=== PATIENT | male | born 1950 | race Caucasian/White ===

== ENCOUNTER 2018-08-15 11:33 | Inpatient (IN) ==
--- NOTE | 2018-08-15 12:20 | Diag Imaging Result Doc PS360 ---
EXAM: CHEST-PORTABLE - 08/15/2018 HISTORY: weak TECHNIQUE: Portable chest COMPARISON: 08/14/2018 FINDINGS: Heart size is normal. There is mild subsegmental atelectasis at the left base. The lungs otherwise appear clear. There is no pleural effusion or pneumothorax identified. IMPRESSION: Mild subsegmental atelectasis at left base. No other evidence of acute disease. Electronically signed by Moses Mcdonald 08/15/2018 12:18 PM
[2018-08-15 12:34] LABS: BASO# 0.02 X1000 (0.0-0.2); BASO% 0.3 % (0.0-0.8); EOS# 0.09 X1000 (0.0-0.7); EOS% 1.4 % (0.0-10.0); HEMATOCRIT 28.4 % (42.0-52.0); HEMOGLOBIN 10.2 g/dL (14.0-18.0); IMM GRAN# 0.02 X1000 (0.0-0.04); IMM GRAN% 0.3 % (0.0-0.5); LYMPH# 1.58 X1000 (1.2-3.4); LYMPH% 24.2 % (20.5-51.1); MCH 36.7 PG (27-31); MCHC 35.9 g/dL (33-37); MCV 102.2 FL (81-99); MONO# 0.51 X1000 (0.11-0.59); MONO% 7.8 % (1.7-9.3); MPV 9.9 FL (7.4-10.4); PLT 243 X1000 (130-400); RBC 2.78 XMIL (4.7-6.1); RDW 11.8 % (11.5-14.5); WBC 6.52 X1000 (4.8-10.8)
[2018-08-15 12:38] LABS: INR 1.37; PROTIME 17.9 Seconds (11.0-16.0)
[2018-08-15 12:39] LABS: PTT 33.9 Seconds (22.3-41.8)
[2018-08-15 12:43] LABS: MAGNESIUM 1.2 mg/dL (1.5-2.7)
[2018-08-15] MEDS ORDERED: NS 1,000 ML IV ONE (13:47)
[2018-08-15 14:41] LABS: URINE SOURCE CLEAN CATCH
[2018-08-15 14:55] LABS: BILIRUBIN URINE NEGATIVE (NEGATIVE); BLOOD URINE MODERATE (NEGATIVE); COLOR YELLOW; GLUCOSE URINE NEGATIVE (NEGATIVE); KETONE URINE NEGATIVE (NEGATIVE); LEUKOCYTES URINE TRACE (NEGATIVE); NITRITE URINE NEGATIVE (NEGATIVE); PH URINE 6.5; PROTEIN URINE TRACE mg/dL (NEGATIVE); TURBIDITY URINE CLEAR (CLEAR); UROBILINOGEN URINE NORMAL (NORMAL)
[2018-08-15 14:56] LABS: UR EPITHELIAL CELLS <10 /HPF (<10); URINE BACTERIA NEGATIVE /HPF; URINE RBC 20-40 /HPF (<10); URINE WBC <10 /HPF (<10)
[2018-08-15 14:59] LABS: AGAP 15; BUN 5 mg/dL (8-22); CALCIUM 7.9 mg/dL (8.8-10.2); CHLORIDE 91 mmol/L (98-107); COSMO 253; CREATININE 0.8 mg/dL (0.7-1.2); ESTIMATED GFR > 60; GLUCOSE 112 mg/dL (70-104); POTASSIUM 2.8 mmol/L (3.5-5.1); SODIUM 127 mmol/L (136-145); TCO2 21 mmol/L (25-35)
[2018-08-15] MEDS ORDERED: POTASSIUM CHLORIDE 20 MEQ/SWI 20 MEQ/100 ML IVPB IV STA (15:02)
[2018-08-15] MEDS: POTASSIUM CHLORIDE 20 MEQ/SWI 20 MEQ/100 ML IVPB IV SCH ×2 (15:54→18:03)
[2018-08-15] MEDS ORDERED: NS 500 ML ONE (15:54)
[2018-08-15] MEDS ORDERED: POTASSIUM CHLORIDE 20 MEQ/SWI 20 MEQ/100 ML IVPB IV SCH (16:00)
[2018-08-15] MEDS ORDERED: NS 500 ML IV ONE (16:06)
--- NOTE | 2018-08-15 16:24 | EKG Report ---
Test Performed on : 08/15/2018 11:54:05 AM Test Reason : ED. NO EKG ORDER FOR MUSE Blood Pressure : / mmHG Vent. Rate : 087 BPM Atrial Rate : 087 BPM P-R Int : 166 ms QRS Dur : 076 ms QT Int : 452 ms P-R-T Axes : 014 022 043 degrees QTc Int : 543 ms Sinus rhythm. with premature atrial complexes. Low voltage QRS Nonspecific ST abnormality Prolonged QT Abnormal ECG When compared with ECG of 14-AUG-2018 09:32, (Unconfirmed) premature atrial complexes. are now present Unconfirmed Result
[2018-08-15] MEDS ORDERED: MAGNESIUM SULFATE 2 GM/S.W.I. 2 GM/50 ML IVPB IV ONE (16:40)
[2018-08-15] MEDS ORDERED: ZOFRAN IV PRN (16:43)
--- NOTE | 2018-08-15 17:54 | PROVIDER DOCUMENTATION ---
This chart was entered by Celina Bui Scribe, acting as scribe for Robert Og MD. HPI-General Adult - General Chief Complaint: Abnormal Lab[s] Stated Complaint: ABNORMAL LABS Time Seen by Provider: 08/15/18 11:44 Source: patient, old records Allergies/Adverse Reactions: Patient Allergies Allergy/AdvReac Type Severity Reaction Status Date / Time No Known Allergies Allergy Verified 08/14/18 09:29 Home Medications: Home Medication List Medication Instructions Recorded Confirmed Last Taken Type Diltiazem HCl [Diltiazem 24Hr ER] 180 mg PO DAILY 12/20/13 08/15/18 08/14/18 21:00 History Fenofibrate [Tricor] 160 mg PO QHS 12/20/13 08/15/18 08/14/18 21:00 History Losartan [Cozaar] 50 mg PO DAILY 12/20/13 08/15/18 08/14/18 21:00 History Ferrous Sulfate 325 mg PO DAILY 08/19/15 08/15/18 08/14/18 21:00 History Pantoprazole [Protonix] 40 mg PO DAILY@0700 08/19/15 08/15/18 08/14/18 21:00 History Aspirin [Aspirin EC] 1 tab PO DAILY 03/06/18 08/15/18 08/14/18 21:00 History Acetaminophen [Tylenol] 650 mg PO Q6H PRN PRN tablet 03/09/18 08/15/18 Unknown Rx Folic Acid 1 mg PO BID tablet 03/09/18 08/15/18 08/14/18 21:00 Rx Duloxetine HCl 30 mg PO HS 08/15/18 08/15/18 08/14/18 21:00 History Rivaroxaban [Xarelto] 20 mg PO HS 08/15/18 08/15/18 08/14/18 21:00 History - History of Present Illness -Gen Adult Nature of Presenting Problems: 67 y/o male presents to ED with decreased appetite and generalized weakness. Pt reports he is not able to walk anymore due to the increasing weakness. Pt states he has been declining since a back surgery last year. Pt denies pain. Pt was s een in ED yesterday and refused admission. Pt is alert and oriented. Location of Pain/Injury: reports: generalized Pain Radiation: reports: no radiation Quality of Pain: reports: none Severity: reports: moderate Onset/Duration: reports: other (last year) Timing: reports: still present, getting worse Context/Activities at Onset: reports: none Modifying Factors: improves with: nothing Associated Symptoms: reports: loss of appetite, weakness, trouble walking Similar Symptoms Previously?: No Recently seen or treated by another doctor?: Yes (ED yesterday for same) Review of Systems - Adult - REVIEW OF SYSTEMS - ADULT Constitutional: denies: chills, fever Eyes: reports: no symptoms reported Ears, Nose, Mouth & Throat: reports: no symptoms reported Cardiovascular: denies: chest pain, palpitations Respiratory: denies: cough, shortness of breath Gastrointestinal: reports: poor appetite. denies: abdominal pain, diarrhea, nausea, vomiting Genitourinary: reports: no symptoms reported Musculoskeletal: denies: back pain, joint pain Integumentary: reports: no symptoms reported Neurological: reports: other (weakness; trouble walking). denies: dizziness/vertigo, seizure Psychiatric: reports: no symptoms reported Endocrine: reports: no symptoms reported Hematologic/Lymphatic: reports: no symptoms reported Allergic/Immunologic: reports: no symptoms reported All Other Systems: Reviewed and Negative Past History - Adult - PAST MEDICAL HISTORY-ADULT Review of Records: reports: Old Records Reviewed, Nursing Assessment Review, Medications Reviewed Major Childhood Illnesses: reports: denies history Cardiovascular: reports: HTN, hyperlipidemia Respiratory: reports: denies history Gastrointestinal: reports: denies history Genitourinary: reports: denies history Musculoskeletal: reports: denies history, chronic pain Neurological: reports: denies history Endocrine/Immune: reports: anemia Other Conditions: reports: denies history - PRIOR SURGERIES/PROCEDURES Surgical/Procedure History: reports: reviewed, not pertinent, hernia repair, orthopedic (extremity) (knees), back/neck (back) - IMMUNIZATION STATUS Childhood Immunizations: See Nurse Assessment Flu Vaccine: See Nurse Assessment - FAMILY HISTORY Family History: reviewed, not pertinent - SOCIAL HISTORY Smoking: greater than 1 pack/day Provider spent 3-5 mins advising pt. on dangers of tobacco.: Discussed manners to quit use, and f/u contacts for add'l counseling. Substance Use: none/never Alcohol Use Frequency: every day Number of drinks per typical drinking period:: 3-4 drinks Living Situation: family Physical Exam-General - PHYSICAL EXAM-ADULT Initial Vital Signs Reviewed: Yes - CONSTITUTIONAL General Appearance: alert, mild distress, cachetic, slow to respond - EYES Eyes: PERRL/EOMI, pink conjunctivae - HEAD, EARS, NOSE, MOUTH & THROAT HENMT: normocephalic/atraumatic, moist mucous membranes, normal ENT inspection - NECK Neck: non-tender, full range of motion - RESPIRATORY Respiratory: lungs clear, normal breath sounds, other (L chest wall tenderness). negative: crepitus - CARDIOVASCULAR Cardiovascular: normal peripheral pulses, regular rate, rhythm - GASTROINTESTINAL (ABDOMEN) Abdominal Exam: normal bowel sounds, non tender, soft - MUSCULOSKELETAL Back Exam: normal inspection, no CVA tenderness Extremity: normal range of motion, non-tender, swelling (bilateral lower extremity edema). negative: normal gait - SKIN Integumentary: normal color, warm/dry - NEUROLOGIC Neurologic: grossly normal - PSYCHIATRIC Psych/Mental Status: normal thought content, normal thought process, oriented x 3, disheveled, depressed affect Progress - PLAN OF CARE/RESULTS Progress/Plan/Lab Results: Vital Signs - 8 hr 08/15/18 11:38 Temperature 98.9 F Pulse Rate 98 H Respiratory Rate 18 Blood Pressure 86/57 O2 Sat by Pulse Oximetry 100 Orders Category Date Time Status Nursing- Obtain EKG once Care 08/15/18 11:48 Active CHEST-PORTABLE [RAD] Stat Exams 08/15/18 11:47 Ordered BLOOD CULTURE [BLDCUL] Stat Lab 08/15/18 11:47 Ordered CBC WITH ELECTRONIC DIFF [HEME] Stat Lab 08/15/18 11:47 Uncollected CK PROFILE [SP CHEM] Stat Lab 08/15/18 11:47 Uncollected LACTATE, PLASMA [CHEM] Stat Lab 08/15/18 11:47 Uncollected MAGNESIUM [CHEM] Stat Lab 08/15/18 11:47 Uncollected PROTIME WITH INR [COAG] Stat Lab 08/15/18 11:47 Uncollected PTT [COAG] Stat Lab 08/15/18 11:47 Uncollected TROPONIN T Stat Lab 08/15/18 11:47 Uncollected URINALYSIS W/POSS RFLX CULT [URINALYSIS] Stat Lab 08/15/18 11:47 Uncollected Laboratory Tests 08/15/18 08/15/18 08/15/18 12:00 12:00 12:00 WBC 6.52 RBC 2.78 L Hgb 10.2 L Hct 28.4 L MCV 102.2 H MCH 36.7 H MCHC 35.9 RDW Std Deviation 11.8 Plt Count 243 MPV 9.9 Immature Gran % (Auto) 0.3 Neut % (Auto) 66.0 Lymph % (Auto) 24.2 Charles % (Auto) 7.8 Eos % (Auto) 1.4 Baso % (Auto) 0.3 Immature Gran # (Auto) 0.02 Neut # (Auto) 4.30 Lymph # (Auto) 1.58 Charles # (Auto) 0.51 Eos # (Auto) 0.09 Baso # (Auto) 0.02 PT INR PTT (Actin FS) Sodium Potassium Chloride Carbon Dioxide Anion Gap BUN Creatinine Estimated GFR/1.73 m2 BUN/Creatinine Ratio Glucose Calculated Osmolality Calcium Magnesium 1.2 L Creatine Kinase 63 Troponin T Plasma Lactate 3.5 H Urine Source Urine Color Urine Turbidity Urine pH Ur Specific [place] Urine Protein Ur Glucose (Stick) Ur Ketones (Stick) Urine Blood Urine Nitrite Urine Bilirubin Urobilinogen Dipstick Urine Leukocytes Urine WBC (Auto) Urine RBC (Auto) U Epithel Cells (Auto) Urine Bacteria (Auto) 08/15/18 08/15/18 08/15/18 12:00 12:00 12:00 WBC RBC Hgb Hct MCV MCH MCHC RDW Std Deviation Plt Count MPV Immature Gran % (Auto) Neut % (Auto) Lymph % (Auto) Charles % (Auto) Eos % (Auto) Baso % (Auto) Immature Gran # (Auto) Neut # (Auto) Lymph # (Auto) Charles # (Auto) Eos # (Auto) Baso # (Auto) PT 17.9 H INR 1.37 D PTT (Actin FS) 33.9 Sodium 127 L Potassium 2.8 L D Chloride 91 L Carbon Dioxide 21 L Anion Gap 15 BUN 5 L Creatinine 0.8 Estimated GFR/1.73 m2 > 60 BUN/Creatinine Ratio 6 Glucose 112 H Calculated Osmolality 253 Calcium 7.9 L Magnesium Creatine Kinase Troponin T 0.056 Plasma Lactate Urine Source Urine Color Urine Turbidity Urine pH Ur Specific [place] Urine Protein Ur Glucose (Stick) Ur Ketones (Stick) Urine Blood Urine Nitrite Urine Bilirubin Urobilinogen Dipstick Urine Leukocytes Urine WBC (Auto) Urine RBC (Auto) U Epithel Cells (Auto) Urine Bacteria (Auto) 08/15/18 08/15/18 12:50 14:12 WBC RBC Hgb Hct MCV MCH MCHC RDW Std Deviation Plt Count MPV Immature Gran % (Auto) Neut % (Auto) Lymph % (Auto) Charles % (Auto) Eos % (Auto) Baso % (Auto) Immature Gran # (Auto) Neut # (Auto) Lymph # (Auto) Charles # (Auto) Eos # (Auto) Baso # (Auto) PT INR PTT (Actin FS) Sodium Potassium Chloride Carbon Dioxide Anion Gap BUN Creatinine Estimated GFR/1.73 m2 BUN/Creatinine Ratio Glucose Calculated Osmolality Calcium Magnesium Creatine Kinase Troponin T Plasma Lactate 1.8 Urine Source CLEAN CATCH Urine Color YELLOW Urine Turbidity CLEAR Urine pH 6.5 Ur Specific [place] 1.010 Urine Protein TRACE A Ur Glucose (Stick) NEGATIVE Ur Ketones (Stick) NEGATIVE Urine Blood MODERATE A Urine Nitrite NEGATIVE Urine Bilirubin NEGATIVE Urobilinogen Dipstick NORMAL Urine Leukocytes TRACE A Urine WBC (Auto) <10 Urine RBC (Auto) 20-40 A U Epithel Cells (Auto) <10 Urine Bacteria (Auto) NEGATIVE Result Diagrams: 08/15/18 12:00 08/15/18 12:00 - EKG 1 Time of EKG reading by physician:: 11:54 EKG Read and Signed by:: Robert Og EKG Interpretation (*Must complete 3 of following elements*): Abnormal Rate: 87 Rhythm: Sinus w/ premature atrial complexes [place]: normal QRS: other (low voltage QRS) CA Interval: prolonged ST Wave: non-specific ST changes - XRAY 1 XRAY Study: Chest Impression: Abnormal (FINDINGS: Heart size is normal. There is mild subsegmental atelectasis at the left base. The lungs otherwise appear clear. There is no pleural effusion or pneumothorax identified. IMPRESSION: Mild subsegmental ate lectasis at left base. No other evidence of acute disease. Electronically signed by Moses Mcdonald 08/15/2018 12:18 PM) - CONSULTS/PCP/HOSPITALIST Notification #1 *Consult/PCP/Hospitalist*: KIERSTEN Franz for hospitalist Time Discussed: 15:04 Reason/Comments: Weakness, low potassium/magnesium, decreased fluid and food intake Consult Disposition: Admit Departure - Departure Date of Disposition Decision: 08/15/18 Time of Disposition Decision: 15:08 DIAGNOSIS: Hypokalemia, Hypomagnesemia, Weakness, Tobacco use disorder Disposition: ADMITTED INPATIENT 09 Certified Medical Emergency: Emergent Condition: Serious - Critical Care Note This patient required my direct & personal management of CC.: No Attestation - Physician/ EVA Attestation Patient care was provided by Advanced Practice Provider:: No The physician spent face to face time with patient:: Yes Advanced Practice Provider documentation review:: Supervising physician onsite and consulted in the evaluation and care of this patient. The physician did have a face to face encounter with the patient. This chart was documented by the indicated scribe, (Celina Bui, [place]) and accurately reflects the services I performed and decisions made by me, Robert Og MD, as attested by the provider's signature.
[2018-08-15] MEDS ORDERED: TYLENOL PO PRN (18:12)
[2018-08-15] MEDS ORDERED: ATIVAN IV PRN (18:23)
[2018-08-15] MEDS ORDERED: LEVAQUIN 750 MG/D5W 750 MG/150 ML IVPB IV SCH (18:45)
--- NOTE | 2018-08-15 19:23 | HISTORY AND PHYSICAL ---
CHIEF COMPLAINT: He has abnormal labs and generalized weakness. HISTORY OF PRESENT ILLNESS: This is a 67-year-old gentleman ,with a history of 2 back surgeries, hypertension, heart failure, prior PE and DVT, who presents to the emergency room complaining of generalized weakness. The patient states that he is so weak he just does not want to walk anymore. He states that he has been declining over the last year after a back surgery. He has had difficulty with maintaining electrolytes secondary to decreased appetite and anorexia. He was evaluated in the emergency room on 08/14/2018, and at that time he was found to have a sodium of 126 and a potassium of 2.2, along with a magnesium of 1.1. Electrolytes were repleted. He had agreed to admission, then actually declined admission and left against medical advice. He returned to the emergency room today after his primary care physician, Dr. Stevenson, reviewed his labs, called him, and encouraged him to come for evaluation. Labs drawn today revealed a sodium of 127, a potassium 2.8, and a magnesium of 1.2. All have been repleted. The patient is agreeable for admission at this time. PAST MEDICAL HISTORY: 1. Iron deficiency anemia. 2. Coronary artery disease with several stents. 3. Decreased bone density and osteoporosis. 4. Hypertension. 5. Dyslipidemia. 6. Depression. 7. Gastroesophageal reflux disease. 8. Chronic back pain secondary to 2 surgeries. 9. Right pulmonary emboli and left deep venous thrombosis in 2013, on Xarelto. PAST SURGICAL HISTORY: 1. Left inguinal hernia repair. 2. PTCA. 3. Back surgeries x2. 4. Right total knee arthroplasty. 5. Left shoulder surgery. 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 He smokes about a pack a day, and he has for about 30 years. He drinks scotch every night. He denies any illicit drug use. He is . His is at the bedside. ALLERGIES: No known drug allergies. HOME MEDICATIONS: A list will be obtained by the nursing staff and once verified, will review and restart as appropriate. REVIEW OF SYSTEMS: Discussed with the patient with pertinent positives stated in the HPI. He denied any syncope or dizziness, any chest pain or palpitations, any night sweats, fevers or chills, any nausea, vomiting, diarrhea, constipation, black or bloody vomitus or stools, any hematuria, dysuria, frequency, urgency. PHYSICAL EXAMINATION: GENERAL: This is a 67-year-old gentleman who is lying in the stretcher in the emergency room in no distress. VITAL SIGNS: Blood pressure is 101/69, heart rate of 82, respirations are 20, temperature is 98.7 degrees, with room air saturations 95% to 98%. EYES: Pupils equal, round, react to light. EOMs are intact. Sclerae are anicteric. HEENT: Head is normocephalic, atraumatic. Mucous membranes are moist. NECK: Supple with trachea midline. CARDIOVASCULAR: Regular rate and rhythm. S1 and S2 are appreciated. He has no lower extremity edema. Peripheral pulses are palpable x4 extremities. Calves are nontender to palpation bilaterally. PULMONARY: Breath sounds are clear with no increased work of breathing noted. Chest rises and falls symmetrically with respiration. Chest wall is nontender to palpation. GASTROINTESTINAL: Abdomen is soft, nondistended, and nontender with bowel sounds in all 4 quadrants. EXTREMITIES: No clubbing, cyanosis, or edema. NEUROLOGIC: He is alert. He is oriented. He has 5/5 muscle strength x4 extremities. He denies any decrease or change in sensation to lower extremities. He does state he has equal sensation. LABS: WBC is 6.5 with hemoglobin 10.2, hematocrit 28.4, platelets 243,000. INR is 1.37. Sodium 127, potassium 2.8, BUN 5, creatinine 0.8, glucose of 112. Troponin is negative. Urinalysis reveals moderate blood with 20 to 40 microscopic red blood cells. Urine culture and blood cultures are pending. Chest x-ray reveals mild subsegmental atelectasis at the left base. ASSESSMENT AND PLAN: 1. Generalized weakness. 2. Subsegmental atelectasis. Blood cultures were drawn in the emergency room. We will give antibiotic coverage of Levaquin. We will start incentive spirometer every 4 hours when awake. We will follow labs and further antibiotics will be culture driven. 3. Microscopic Hematuria. The patient is on Xarelto. INR is 1.3. He denies any gross hematuria orprior reports of hematuria. Looking back, he has had microscopic hematuria since back in 2016. 4. Hyponatremia. He received a liter bolus in the emergency room. We will continue with gentle hydration and recheck labs in the morning. 5. Hypokalemia. We will replete his potassium, will trend, and replete as appropriate. 6. Hypomagnesemia. We will replete his magnesium and trend his labs. 7. History of deep venous thrombosis and pulmonary embolus. We will continue his Xarelto. 8. History of coronary artery disease with several stents. Aware. 9. Hypertension. Aware. 10. History of depression. We will identify his home medications and continue as appropriate. 11. Chronic back pain, secondary to multiple surgeries. 12. Gastroesophageal reflux disease. Proton pump inhibitor. 13. Generalized weakness. We will have Physical Therapy evaluate the patient. 14. Further treatments pending hospital course. Patient seen and examined by me face to face, all the laboratory, vitals signs and images were reviewed, patient came yesterday and left AMA, today is coming again complaining of generalized weakness and he also has electrolyte imbalance, he smokes and drink on a daily basis, he had some surgeries on his back before and because of that he states that he can not walk to much he is not eating to much either, for me he is depressed, I talked to him and also to his about it and they understand and they actually know about it, I believe he needs psychiatry evaluation, but he basically refused, he is not willing to do physical activity here either, he wants to get his electrolytes replaced and that is it, I agree with the [employer] [facility] [facility]ER's assessment and plan, Ignacio Figueroa MD. Dictated by KIERSTEN Canales for Ignacio Aguila MD cc: KIERSTEN Canales MD [facility]
[2018-08-15 19:54] LABS: AGAP 14; BUN 5 mg/dL (8-22); CALCIUM 7.5 mg/dL (8.8-10.2); CHLORIDE 97 mmol/L (98-107); COSMO 261; CREATININE 0.8 mg/dL (0.7-1.2); ESTIMATED GFR > 60; GLUCOSE 110 mg/dL (70-104); MAGNESIUM 1.6 mg/dL (1.5-2.7); POTASSIUM 2.7 mmol/L (3.5-5.1); SODIUM 131 mmol/L (136-145); TCO2 20 mmol/L (25-35)
[2018-08-15] MEDS ORDERED: CARDIZEM CD PO SCH (21:00)
[2018-08-15] MEDS ORDERED: CYMBALTA PO SCH (21:00)
[2018-08-15] MEDS ORDERED: XARELTO PO SCH (21:00)
[2018-08-15] MEDS ORDERED: LOFIBRA PO SCH (21:00)
[2018-08-15] MEDS: FERROUS SULFATE PO SCH (23:28)
[2018-08-15] MEDS: LIBRIUM PO SCH (23:28)
[2018-08-15] MEDS: ASPIRIN EC PO SCH (23:28)
[2018-08-15] MEDS: COZAAR PO SCH (23:28)
[2018-08-15] MEDS: FOLIC ACID PO SCH (23:28)
[2018-08-16] MEDS: LIBRIUM PO SCH ×2 (01:13→08:49)
[2018-08-16] MEDS ORDERED: PROTONIX PO SCH (07:00)
[2018-08-16 07:18] LABS: BASO# 0.01 X1000 (0.0-0.2); BASO% 0.3 % (0.0-0.8); EOS# 0.07 X1000 (0.0-0.7); EOS% 1.8 % (0.0-10.0); HEMATOCRIT 25.6 % (42.0-52.0); HEMOGLOBIN 8.9 g/dL (14.0-18.0); IMM GRAN# 0.02 X1000 (0.0-0.04); IMM GRAN% 0.5 % (0.0-0.5); LYMPH# 1.11 X1000 (1.2-3.4); LYMPH% 28.4 % (20.5-51.1); MCH 36.2 PG (27-31); MCHC 34.8 g/dL (33-37); MCV 104.1 FL (81-99); MONO% 10.2 % (1.7-9.3); NEUT% 58.8 % (42.2-75.2); PLT 200 X1000 (130-400); RBC 2.46 XMIL (4.7-6.1); WBC 3.91 X1000 (4.8-10.8)
[2018-08-16 07:37] LABS: AGAP 11; BUN 4 mg/dL (8-22); CALCIUM 7.5 mg/dL (8.8-10.2); CHLORIDE 98 mmol/L (98-107); COSMO 260; CREATININE 0.7 mg/dL (0.7-1.2); ESTIMATED GFR > 60; GLUCOSE 111 mg/dL (70-104); MAGNESIUM 1.6 mg/dL (1.5-2.7); POTASSIUM 2.6 mmol/L (3.5-5.1); SODIUM 131 mmol/L (136-145); TCO2 22 mmol/L (25-35)
[2018-08-16] MEDS: ASPIRIN EC PO SCH (08:49)
[2018-08-16] MEDS: FOLIC ACID PO SCH (08:49)
[2018-08-16] MEDS: COZAAR PO SCH (08:49)
[2018-08-16] MEDS: FERROUS SULFATE PO SCH (08:49)
[2018-08-16] MEDS ORDERED: MAGNESIUM SULFATE 2 GM/S.W.I. 2 GM/50 ML IVPB IV ONE (09:47)
[2018-08-16] MEDS ORDERED: KLOR-CON PO ONE ×2 (09:47→20:00)
[2018-08-16 13:34] VITALS: BP 97/57
--- NOTE | 2018-08-17 13:34 | DISCHARGE SUMMARY ---
ADMISSION DATE: 08/15/2018 DISCHARGE DATE: 08/16/2018 DISCHARGE DIAGNOSES: 1. Electrolytes imbalance, hyponatremia, hypokalemia, hypomagnesemia. 2. Generalized weakness. 3. Microscopic hematuria. 4. History of deep venous thrombosis and pulmonary embolism. 5. History of coronary artery disease with multiple stents. 6. Hypertension. 7. Depression. 8. Chronic back pain secondary to multiple surgeries. 9. Gastroesophageal reflux disease. PROCEDURES PERFORMED: 1. Chest x-ray dated 08/15/2017. Impression: Mild subsegmental atelectasis at the left base. No other evidence of acute disease. 2. EKG dated 08/15/2018. Impression: Sinus rhythm with PACs. HOSPITAL COURSE: A 67-year-old male with a past medical history of anemia, coronary artery disease with multiple stents, decreased bone density and osteoporosis, hypertension, dyslipidemia, depression, GERD, chronic back pain secondary to surgeries, pulmonary emboli and DVT in 2013 on chronic anticoagulation, electrolytes imbalance, presented to the emergency department yesterday complaining of generalized weakness, the patient states that he is so weak that he just does not want to walk anymore, he does have some extremity weakness, but he is able to move his legs. He has history of depression and he has been on Cymbalta, and before that, he has been on other medications, but this patient apparently is just not willing to cooperate. He does not want eat and do any kind of physical activity. As per the patient, he has been declining over the last year after a his back surgery and he has had difficulty with maintaining electrolytes secondary to decreased appetite and anorexia. He was evaluated actually on 08/14/2018 in the emergency department by where he was found to have low sodium, potassium and magnesium, but he decided to leave AMA. Yesterday, 08/15/2018, he was re-evaluated. His electrolytes were repleted and he agreed with admission. I had a large conversation during upon admission with the and the patient and I suggested to the patient that he probably needs psychiatry consultation, and physical therapy. Today I talked to the patient again. His electrolytes are still low and I will replace them. I had at this time again a large conversation with the patient, his and daughter which were at the bedside, I told them that I am still worried about his situation, I replaced his electrolytes again and I told them that basically I do not see why he can not try physical therapy or eating at home, I recommended small portions of food multiple times a day and he agreed with that, but after the treatment with the electrolytes, he decided to leave [facility]. I had yesterday a conversation with his and today with his daughter, I do believe he needs psychological evaluation and treatment as well as physical therapy and try to give him multiple times a day food. This patient drinks every day. Apparently, he drinks scotch every night and he smokes about a pack a day as well, which, of course, I recommended to stop. Patient seems to be thoroughly stable but he decided to leave [place]. cc: Ignacio Aguila MD MTDD
== END 2018-08-16 14:08 | disposition left against medical advice (07) | DRG 641 ==
LOC: ED 11:33 → 3N 17:11
PROVIDERS: ATTEND Internal Medicine
CPT/HCPCS: 70450; 71010; 71045; 80048; 80053; 80307; 80320; 81001; 82055; 82550; 83605; 83735; 83880; 84484; 85025; 85610; 85730; 86850; 86900; 86901; 87040; 87088; 93005; 96360; 96361; 96365; 96366; 96368; 97162; 99284; 99285; A9270; G0480; G6040; J1956; J3475; J3480; J7030; J7040